=== PATIENT | female | born 1980 | race Caucasian/White ===

== ENCOUNTER 2018-02-19 07:27 | Emergency (ER) | payer OTHER ==
[2018-02-19 07:50] VITALS: BMI 25.3
--- NOTE | 2018-02-19 08:00 | PDOC ---
History of Present Illness - General Chief Complaint: Vaginal Bleeding Stated Complaint: VAGINAL BLEEDING (11 WEEKS ) Time Seen by Provider: 02/19/18 07:58 History Source: Patient Exam Limitations: No Limitations - History of Present Illness Initial Comments: 02/19/18 08:21 CHIEF COMPLAINT: Vaginal bleeding HISTORY OF PRESENT ILLNESS: This is a 37 year old a1 + ectopic s/ p laparoscopic right salpingectomy 06/26/2015, LMP 11/30/2017 who presents with severe right pelvic pain and vaginal bleeding (initially "clear fluid", followed by bleeding x 1 pad) since last night. Pain is intermittent. She states that it is worse than the pain of her ectopic . REVIEW OF SYSTEMS: GENERAL/CONSTITUTIONAL: No fever or chills. No weakness. No weight change. HEAD, EYES, EARS, NOSE AND THROAT: No change in vision. No ear pain or discharge. No sore throat. CARDIOVASCULAR: No chest pain or palpitations. RESPIRATORY: No cough, wheezing, or shortness of breath. GASTROINTESTINAL: No nausea, vomiting, diarrhea or constipation. GENITOURINARY: See HPI. MUSCULOSKELETAL: No joint or muscle swelling or pain. No neck or back pain. SKIN: No rash or easy bruising. NEUROLOGIC: No headache, vertigo, loss of consciousness, or loss of sensation. PSYCHIATRIC: No depression or anxiety. ENDOCRINE: No increased thirst. No abnormal weight change. HEMATOLOGIC/LYMPHATIC: No anemia, easy bleeding, or history of blood clots. ALLERGIC/IMMUNOLOGIC: No hives or skin allergy. No latex allergy. PHYSICAL EXAM: GENERAL: The patient is awake, alert, and fully oriented, in no acute distress. HEAD: Normal with no signs of trauma. ENT: Pupils equal, round and reactive to light, extraocular movements intact, sclera anicteric, conjunctiva clear. Neck supple. LUNGS: Clear to auscultation bilaterally. Normal excursion. No respiratory distress or use of accessory muscles. CV: RRR, S1/S2, no MRG. Cap refill < 2 sec. ABDOMEN: Soft, non-distended, non-tender. EXTREMITIES: Normal range of motion, no edema. NEUROLOGICAL: Normal speech, normal gait. CN II-XII grossly intact. PSYCH: Normal mood, normal affect. SKIN: Warm, dry, normal turgor, no rashes or lesions noted. 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 Scant blood in vaginal vault. Right adnexal tenderness. Cervix open one fingerbreadth. Past History - Past Medical History Allergies/Adverse Reactions: Allergies Allergy/AdvReac Type Severity Reaction Status Date / Time No Known Allergies Allergy Verified 02/19/18 07:40 Home Medications: Ambulatory Orders Oxycodone HCl 5 mg PO Q6H PRN #10 tablet MDD 4 tabs 02/19/18 COPD: No Other medical history: DENIES. - Reproductive History (#): 3 Para: 0 Cervical CA: No Dysfunctional Uterine Bleeding: No Ectopic : Yes (rt side 06/26/15) Endometrial CA: No Polycystic Ovaries: No Tubal Ligation: No Spontaneous : 1 - Immunization History Immunization Up to Date: Yes - Suicide/Smoking/Psychosocial Hx Smoking History: Never smoked Have you smoked in the past 12 months: No Hx Alcohol Use: No Drug/Substance Use Hx: No Substance Use Type: None *Physical Exam - Vital Signs Last Vital Signs Temp Pulse Resp BP Pulse Ox 98.9 F 93 H 19 116/55 100 02/19/18 07:40 02/19/18 07:40 02/19/18 07:40 02/19/18 07:40 02/19/18 07:40 ED Treatment Course - LABORATORY CBC & Chemistry Diagram: 02/19/18 08:15 - RADIOLOGY Radiology Studies Ordered: Category Date Time Status <14WKS US [US] Stat Ultrasound 02/19/18 07:59 Ordered Medical Decision Making - Medical Decision Making 02/19/18 08:47 A/P: 37 year old female with vaginal bleeding, history of extopic. 1. Labs including CBC, bhcg, T&S, UA/culture 2. Transvaginal u/s 3. Tylenol 975mg po for pain 02/19/18 09:42 Bhcg 1446 Blood type rh + 02/19/18 11:59 U/s reviewed: IUP 5 weeks 5 days without cardiac activity. Given LMP and open cervix, likely inevitable ab. Patient will return Friday for repeat labs and u/s. She is crying in pain, so will give Toradol as do not suspect viable . Followup instructions and return precautions reviewed. *DC/Admit/Observation/Transfer Diagnosis at time of Disposition: Inevitable - Discharge Dispostion Disposition: HOME Condition at time of disposition: Stable Admit: No - Prescriptions Prescriptions: Oxycodone HCl 5 mg PO Q6H PRN #10 tablet MDD 4 tabs PRN Reason: Pain - Referrals Referrals: Haydee Yeung MD [Certified Nurse Machine Operator Replanter] - 3 days - Patient Instructions Printed Discharge Instructions: DI for Threatened Additional Instructions: -Take Tylenol as needed for pain -Return here on Friday for repeat lab work and ultrasound -Return sooner for bleeding more than one pad per hour or any other concerning symptoms Print Language: [place] ISLANDER - Post Discharge Activity Forms/Work/School Notes: Back to Work
[2018-02-19] MEDS ORDERED: ACETAMINOPHEN 325 MG TABLET (FP) ONE (08:16)
[2018-02-19 08:27] LABS: BASO % 0.6 % (0-2.0); EOS % 5.7 % (0-4.5); HEMATOCRIT 36.2 % (32.4-45.2); HEMOGLOBIN 12.2 GM/dL (10.7-15.3); LYMPH % 19.9 % (8-40); MCH 29.9 pg (25.7-33.7); MCHC 33.6 g/dl (32.0-36.0); MEAN PLT VOLUME 7.5 fl (7.5-11.1); MONO % 6.9 % (3.8-10.2); NEUT % 66.9 % (42.8-82.8); PLATELET COUNT 345 K/MM3 (134-434); RBC 4.07 M/mm3 (3.60-5.2); RDW 13.2 % (11.6-15.6); WHITE BLOOD COUNT 11.6 K/mm3 (4.0-10.0)
[2018-02-19] MEDS ORDERED: ACETAMINOPHEN 500 MG TABLET (FP) PO ONE (08:27)
[2018-02-19 08:28] LABS: URINE APPEARANCE CLEAR; URINE BILIRUBIN NEGATIVE (NEGATIVE); URINE BLOOD 3+ (NEGATIVE); URINE COLOR STRAW; URINE GLUCOSE (UA) NEGATIVE (NEGATIVE); URINE KETONE NEGATIVE (NEGATIVE); URINE LEUK ESTERASE NEGATIVE (NEGATIVE); URINE NITRITE NEGATIVE (NEGATIVE); URINE PROTEIN NEGATIVE (NEGATIVE); URINE UROBILINOGEN NEGATIVE mg/dL (0.2-1.0)
[2018-02-19 08:35] LABS: EPI CELLS RARE /HPF (FEW); URINE BACTERIA RARE /hpf (NONE SEEN)
[2018-02-19 11:17] VITALS: TEMP 98.6
[2018-02-19] MEDS ORDERED: IBUPROFEN 600 MG TABLET (FP) PO ONE (11:58)
[2018-02-19] MEDS ORDERED: KETOROLAC TROMETHAMINE 30 MG/1 ML VIAL IM ONE (12:03)
[2018-02-19] MEDS ORDERED: KETOROLAC TROMETHAMINE 30 MG/1 ML VIAL ONE (12:13)
[2018-02-19] MEDS ORDERED: morphine CARPU-JECT 4 MG/1 ML DISP.SYRIN IVPUSH ONE (13:11)
--- NOTE | 2018-02-19 13:12 | PDOC ---
ED Treatment Course - LABORATORY CBC & Chemistry Diagram: 02/19/18 08:15 - ADDITIONAL ORDERS Additional order review: Laboratory Results 02/19/18 02/19/18 02/19/18 08:15 08:15 08:15 Beta HCG, Quant 1446.1 Urine Color Straw Urine Appearance Clear Urine pH 6.0 Ur Specific [place] 1.004 Urine Protein Negative Urine Glucose (UA) Negative Urine Ketones Negative Urine Blood 3+ H Urine Nitrite Negative Urine Bilirubin Negative Urine Urobilinogen Negative Ur Leukocyte Esterase Negative Urine WBC (Auto) 2 Urine RBC (Auto) 2 Ur Epithelial Cells Rare Urine Bacteria Rare Blood Type B POSITIVE Antibody Screen Negative 02/19/18 08:15 RBC 4.07 MCV 89.0 MCHC 33.6 RDW 13.2 MPV 7.5 Neutrophils % 66.9 Lymphocytes % 19.9 D Monocytes % 6.9 Eosinophils % 5.7 H Basophils % 0.6 - RADIOLOGY Radiology Studies Ordered: Category Date Time Status <14WKS US [US] Stat Ultrasound 02/19/18 07:59 Completed - Medications Given in the ED: ED Medications Discontinued Medications Generic Name Dose Route Start Last Admin Trade Name Nickq PRN Reason Stop Dose Admin Acetaminophen 975 mg 02/19/18 08:27 02/19/18 08:35 Tylenol - PO 02/19/18 08:28 975 mg ONCE ONE Administration Ibuprofen 600 mg 02/19/18 11:58 02/19/18 12:21 Motrin - PO 02/19/18 11:59 Not Given ONCE ONE Ketorolac Tromethamine 30 mg 02/19/18 12:03 02/19/18 12:20 Toradol Injection - IM 02/19/18 12:04 30 mg ONCE ONE Administration Medical Decision Making - Medical Decision Making 02/19/18 13:25 Patient discharged, but is writhing in pain after Toradol and Tylenol. Is requesting "something stronger"'; will give Morphine. Discussed with Dr. Kathleen, account relationship manager for OB. 02/19/18 16:21 Patient re-evaluated and is feeling better. Feels comfortable going home and returning for re-evaluation on Friday. *DC/Admit/Observation/Transfer Diagnosis at time of Disposition: Inevitable - Discharge Dispostion Disposition: HOME Condition at time of disposition: Stable - Prescriptions Prescriptions: Ibuprofen [Motrin -] 600 mg PO QID #15 tablet - Referrals Referrals: Haydee Yeung MD [Certified Nurse Test Skein Winder] - 3 days - Patient Instructions Printed Discharge Instructions: DI for Threatened Additional Instructions: -Take Tylenol as needed for pain -Return here on Friday for repeat lab work and ultrasound -Return sooner for bleeding more than one pad per hour or any other concerning symptoms Print Language: HUNGARIAN - Post Discharge Activity Forms/Work/School Notes: Back to Work
[2018-02-19] MEDS ORDERED: MORPHINE SULFATE 10 MG/1 ML *VIAL ONE (13:28)
[2018-02-19 14:54] VITALS: BP 118/72; PULSE 73
== END 2018-02-19 16:54 | disposition home or self-care (01) ==
LOC: JER 07:27
PROC: 3E0233Z Introduction of Anti-inflammatory into Muscle, Percutaneous Approach (ICD-10-PCS; principal; 2018-02-19)
PROC: 3E033NZ Introduction of Analgesics, Hypnotics, Sedatives into Peripheral Vein, Percutaneous Approach (ICD-10-PCS; 2018-02-19)
DX: O26.891 Other specified pregnancy related conditions, first trimester (principal); O20.0 Threatened abortion; Z3A.01 Less than 8 weeks gestation of pregnancy
CPT/HCPCS: 36415; 76801-TC; 81003; 81015; 84702; 85025; 86850; 86900; 86901; 87086; 99283-25

== ENCOUNTER 2018-02-21 08:21 | Emergency (ER) | payer OTHER ==
[2018-02-21 08:31] VITALS: BP 117/67; PULSE 78; TEMP 98.4; BMI 25.3
--- NOTE | 2018-02-21 09:39 | PDOC ---
History of Present Illness - General Chief Complaint: Revisit,Wound Recheck Stated Complaint: FOLLOW UP Time Seen by Provider: 02/21/18 09:27 History Source: Patient Exam Limitations: No Limitations - History of Present Illness Initial Comments: 02/21/18 09:42 Patient came to emergency department for repeat beta hCG and ultrasound. Was seen here 2 days ago and diagnosed with a probable missed AB. Beta hCG then was 1446 and patient had urge amount of bleeding with noted clots at that time. Patient states bleeding has lessened abdominal pain. However feels weak with no fevers Occurred: reports: yesterday Severity: reports: mild Pain Location: reports: abdomen Past History - Travel Traveled outside of the country in the last 30 days: No Close contact w/someone who was outside of country & ill: No - Past Medical History Allergies/Adverse Reactions: Allergies Allergy/AdvReac Type Severity Reaction Status Date / Time No Known Allergies Allergy Verified 02/21/18 08:26 Home Medications: Ambulatory Orders Oxycodone HCl 5 mg PO Q6H PRN #10 tablet MDD 4 tabs 02/19/18 COPD: No - Reproductive History (#): 3 Para: 0 Cervical CA: No Dysfunctional Uterine Bleeding: No Ectopic : Yes (rt side 06/26/15) Endometrial CA: No Polycystic Ovaries: No Tubal Ligation: No Spontaneous : 1 - Immunization History Immunization Up to Date: Yes - Suicide/Smoking/Psychosocial Hx Smoking History: Never smoked Have you smoked in the past 12 months: No Hx Alcohol Use: No Drug/Substance Use Hx: No Substance Use Type: None Review of Systems - Review of Systems Able to Perform ROS?: Yes Is the patient limited French proficient: Yes Constitutional: Yes: Symptoms Reported, See HPI, Malaise. No: Fever HEENTM: No: Symptoms Reported Respiratory: Yes: See HPI. No: Symptoms reported Integumentary: Yes: Symptoms Reported All Other Systems: Reviewed and Negative *Physical Exam - Vital Signs Last Vital Signs Temp Pulse Resp BP Pulse Ox 98.4 F 78 18 117/67 99 02/21/18 08:24 02/21/18 08:24 02/21/18 08:24 02/21/18 08:24 02/21/18 08:24 - Physical Exam General Appearance: Yes: Nourished, Appropriately Dressed, Apparent Distress, Mild Distress HEENT: positive: LALY, Normal ENT Inspection, TMs Normal, Pharynx Normal, Excessive drooling Neck: positive: Supple. negative: Tender, Lymphadenopathy (R), Lymphadenopathy (L) Respiratory/Chest: positive: Lungs Clear, Other (3 specific tender mobile nodules noted in left upper quadrant at 12:00 and 2:00. Has no skin changes, no nipple discharge, and breasts appear to be symmetrical. No axillary lymphadenopathy. 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 Patient has appointment with Dr. Yeung on Friday and given results of ultrasound and lab testing showing no intrauterine . Understands to drink lots of fluids, rehydrating, and keep appointment Friday for reevaluation. *DC/Admit/Observation/Transfer Diagnosis at time of Disposition: Miscarriage - Discharge Dispostion Disposition: HOME Condition at time of disposition: Stable Admit: No - Referrals Referrals: Haydee Yeung MD [Primary Care Provider] - Chiara Kohli MD [Staff Physician] - - Patient Instructions Printed Discharge Instructions: DI for Miscarriage Additional Instructions: Rest, drink lots of fluids: Teas, water, soups Avoid heavy , spicy or fatty foods until symptoms have resolved Continue [id number] medications for symptomatic relief Tylenol or Motrin for fever and pain Followup with private physician in one to 2 days as needed Return to emergency department for worsened symptoms, fevers, dehydration - Post Discharge Activity Forms/Work/School Notes: Back to Work
== END 2018-02-21 11:57 | disposition home or self-care (01) ==
LOC: JERFT 08:21 → JER 08:21 → JERFT 11:57
DX: O02.1 Missed abortion (principal); Z3A.00 Weeks of gestation of pregnancy not specified
CPT/HCPCS: 36415; 76817-TC; 84702; 99281-25

== ENCOUNTER 2018-12-31 22:38 | Emergency (ER) | payer OTHER ==
[2018-12-31 22:57] VITALS: BP 127/60; PULSE 78; TEMP 98.4; BMI 22.8
--- NOTE | 2018-12-31 23:28 | PDOC ---
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 Patient report doing home test which was positive today. Patient report h/o 2 miscarriages and 1 ectopic treated with right salpingectomy 2 years ago. Denies soaking any pads and only use panty liners. Denies N/V, dizziness, abdominal pains, fever. Timing/Duration: 1-3 hours Past History - Past Medical History Allergies/Adverse Reactions: Allergies Allergy/AdvReac Type Severity Reaction Status Date / Time No Known Allergies Allergy Verified 12/31/18 22:56 Home Medications: Ambulatory Orders Pnv No.95/Ferrous Fum/Folic AC [ Vitamin Tablet] 1 each PO DAILY 30 Days #30 tablet 01/01/19 COPD: No - Reproductive History (#): 3 Para: 0 Cervical CA: No Dysfunctional Uterine Bleeding: No Ectopic : Yes (rt side 06/26/15) Endometrial CA: No Polycystic Ovaries: No Tubal Ligation: No Spontaneous : 1 - Immunization History Immunization Up to Date: Yes - Suicide/Smoking/Psychosocial Hx Smoking History: Never smoked Have you smoked in the past 12 months: No Information on smoking cessation initiated: No Hx Alcohol Use: No Drug/Substance Use Hx: No Substance Use Type: None Review of Systems - Review of Systems Able to Perform ROS?: Yes Is the patient limited Nauruan proficient: No Constitutional: No: Fever, Malaise HEENTM: No: Blurred Vision, Recent change in vision Respiratory: No: Symptoms reported Cardiac (ROS): No: Symptoms Reported, See HPI, Chest Pain, Edema, Irregular Heart Rate, Lightheadedness, Palpitations, Syncope, Chest Tightness, Other ABD/GI: No: Nausea, Vomiting, Abdominal cramping : Yes: Other (vaginal spotting). No: Burning, Dysuria, Discharge, Frequency, Urgency All Other Systems: Reviewed and Negative *Physical Exam - Vital Signs Last Vital Signs Temp Pulse Resp BP Pulse Ox 98.4 F 78 16 127/60 100 12/31/18 22:54 12/31/18 22:54 12/31/18 22:54 12/31/18 22:54 12/31/18 22:54 - Physical Exam General Appearance: Yes: Nourished, Appropriately Dressed. No: Apparent Distress HEENT: positive: EOMI, LALY, Normal ENT Inspection Neck: positive: Supple Respiratory/Chest: positive: Lungs Clear. negative: Respiratory Distress, Accessory Muscle Use Cardiovascular: positive: Regular Rhythm, Regular Rate Female Pelvic Exam: positive: normal external exam, cervical os closed, normal adnexa. negative: CMT, discharge, vaginal bleeding (no blood in vaginal vault) Gastrointestinal/Abdominal: positive: Flat, Soft. negative: Tender, Organomegaly Musculoskeletal: positive: Normal Inspection Extremity: positive: Normal Capillary Refill, Normal Inspection Neurologic: positive: Fully Oriented, Alert, Normal Response Moderate Sedation - Procedure Monitoring Vital Signs: Procedure Monitoring Vital Signs Temperature 98.4 F 12/31/18 22:54 Pulse Rate 78 12/31/18 22:54 Respiratory Rate 16 12/31/18 22:54 Blood Pressure 127/60 12/31/18 22:54 O2 Sat by Pulse Oximetry (%) 100 12/31/18 22:54 ED Treatment Course - LABORATORY CBC & Chemistry Diagram: 01/01/19 00:33 01/01/19 00:33 Medical Decision Making - Medical Decision Making 12/31/18 23:56 Patient LMP 15 present with complains of vaginal spotting since today. Patient report doing home test which was positive today. Patient report h/o 2 miscarriages and 1 ectopic treated with right salpingectomy 2 years ago. Clinical exam unremarkable with no vaginal bleeding on exam. CBC,CMP beta hcg , type and screen labs ordered. transvaginal US ordered to document IUP. symptoms likely threatened AB and will be discharged home to f/u in 48hrs for beta hcg if normal labs and US. 01/01/19 00:31 official pelvic us shows GS with no yolk sac or FP. no adnexal mass on US. gestational sac diameter of 0.48cm c/w 5.0wks GA. labs pending 01/01/19 01:57 CBC and chemistry labs normal. beta hcg 6200. patient stable for d/c with f/u in 48hrs for rpt beta hcg level *DC/Admit/Observation/Transfer Diagnosis at time of Disposition: Threatened in first trimester - Discharge Dispostion Disposition: HOME Condition at time of disposition: Stable Decision to Admit order: No - Prescriptions Prescriptions: Pnv No.95/Ferrous Fum/Folic AC [ Vitamin Tablet] 1 each PO DAILY 30 Days #30 tablet - Referrals Referrals: Arnulfo Au MD [Staff Physician] - - Patient Instructions Printed Discharge Instructions: DI for Threatened Additional Instructions: Your labs and ultrasound was normal. follow-up in 2 days either with your OB or ED for repeat hcg labs to follow-up with . Come back to ER if worsening vaginal bleeding, abdominal pains Print Language: ECUADOREAN - Post Discharge Activity
[2019-01-01 01:02] LABS: BASO % 0.7 % (0-2.0); EOS % 6.1 % (0-4.5); HEMATOCRIT 34.5 % (32.4-45.2); HEMOGLOBIN 12.1 GM/dL (10.7-15.3); LYMPH % 22.5 % (8-40); MCH 31.2 pg (25.7-33.7); MEAN CELL VOLUME 89.2 fl (80-96); MEAN PLT VOLUME 8.1 fl (7.5-11.1); MONO % 7.9 % (3.8-10.2); NEUT % 62.8 % (42.8-82.8); PLATELET COUNT 300 K/MM3 (134-434); RBC 3.87 M/mm3 (3.60-5.2); RDW 13.3 % (11.6-15.6); WHITE BLOOD COUNT 8.6 K/mm3 (4.0-10.0)
[2019-01-01 01:49] LABS: ALBUMIN 3.8 g/dl (3.4-5.0); ALK PHOS 60 U/L (45-117); ANION GAP 6 MMOL/L (8-16); BILIRUBIN,TOTAL 0.3 mg/dL (0.2-1); BLOOD UREA NITROGEN 10 mg/dL (7-18); CALCIUM 8.8 mg/dL (8.5-10.1); CHLORIDE 106 mmol/L (98-107); CO2 26 mmol/L (21-32); CREATININE 0.7 mg/dL (0.55-1.3); GLUCOSE,RANDOM 92 mg/dL (74-106); POTASSIUM 4.4 mmol/L (3.5-5.1); SGOT/AST 18 U/L (15-37); SGPT/ALT 30 U/L (13-61); SODIUM 137 mmol/L (136-145); TOT PROT 7.2 g/dl (6.4-8.2)
== END 2019-01-01 02:04 | disposition home or self-care (01) ==
LOC: JER 22:38
DX: O26.891 Other specified pregnancy related conditions, first trimester (principal); Z3A.01 Less than 8 weeks gestation of pregnancy; O20.0 Threatened abortion
CPT/HCPCS: 36415; 76801-TC; 80053; 84702; 85025; 86850; 86900; 86901; 99281-25

== ENCOUNTER 2019-01-03 16:51 | Emergency (ER) | payer SELFPAY, OTHER | END 2019-01-03 20:04 | disposition home or self-care (01) | LOC: JERFT 16:51 ==

== ENCOUNTER 2019-01-19 14:57 | Emergency (ER) | payer OTHER ==
[2019-01-19 15:09] VITALS: BP 128/57; PULSE 84; TEMP 98; BMI 25.7
--- NOTE | 2019-01-19 15:09 | PDOC ---
Rapid Medical Evaluation Chief Complaint: Pain Time Seen by Provider: 01/19/19 15:03 Medical Evaluation: Allergies Allergy/AdvReac Type Severity Reaction Status Date / Time No Known Allergies Allergy Verified 01/03/19 17:00 01/19/19 15:07 I have performed a brief in person evaluation of this patient. CC: Left flank pain HPI: Pt is a 38 YO female who states she has left flank pain x 1 night. Pt is 7 weeks . Denies urinary symptoms. PE: Skin: Clear Lungs: Clear Heart:RRR Abd: soft, nontender MS: Moves all extremities without difficulty Neuro: Alert and oriented Psych: Appropriate affect I have ordered the following: UA/UC Pt will proceed to the main ED for further evaluation. Discharge Disposition - Diagnosis Flank pain - Referrals - Patient Instructions - Post Discharge Activity
[2019-01-19] MEDS ORDERED: ACETAMINOPHEN 325 MG TABLET (FP) PO ONE (16:01)
--- NOTE | 2019-01-19 16:01 | PDOC ---
History of Present Illness - General Chief Complaint: Pain Stated Complaint: LOWER BACK PAIN Time Seen by Provider: 01/19/19 15:03 History Source: Patient - History of Present Illness Timing/Duration: reports: intermittent Past History - Past Medical History Allergies/Adverse Reactions: Allergies Allergy/AdvReac Type Severity Reaction Status Date / Time No Known Allergies Allergy Verified 01/19/19 15:04 Home Medications: Ambulatory Orders Pnv No.95/Ferrous Fum/Folic AC [ Vitamin Tablet] 1 each PO DAILY 30 Days #30 tablet 01/01/19 COPD: No Other medical history: LMP - Reproductive History (#): 3 Para: 0 Cervical CA: No Dysfunctional Uterine Bleeding: No Ectopic : Yes (rt side 06/26/15) Endometrial CA: No Polycystic Ovaries: No Tubal Ligation: No Spontaneous : 1 - Immunization History Immunization Up to Date: Yes - Suicide/Smoking/Psychosocial Hx Smoking History: Never smoked Have you smoked in the past 12 months: No Hx Alcohol Use: No Drug/Substance Use Hx: No Substance Use Type: None Review of Systems - Review of Systems Constitutional: No: Chills, Fever ABD/GI: No: Diarrhea, Nausea, Vomiting, Abdominal cramping : No: Dysuria, Flank Pain, Hematuria *Physical Exam - Vital Signs Last Vital Signs Temp Pulse Resp BP Pulse Ox 98 F 84 16 128/57 L 99 01/19/19 15:05 01/19/19 15:05 01/19/19 15:05 01/19/19 15:05 01/19/19 15:05 - Physical Exam General Appearance: Yes: Appropriately Dressed. No: Apparent Distress HEENT: positive: Normal Voice Neck: positive: Supple Respiratory/Chest: negative: Respiratory Distress Gastrointestinal/Abdominal: negative: Tender Musculoskeletal: negative: CVA Tenderness, Vertebral Tenderness Extremity: positive: Normal Inspection Integumentary: positive: Dry, Warm Neurologic: positive: Fully Oriented, Alert, Normal Mood/Affect Moderate Sedation - Procedure Monitoring Vital Signs: Procedure Monitoring Vital Signs Temperature 98 F 01/19/19 15:05 Pulse Rate 84 01/19/19 15:05 Respiratory Rate 16 01/19/19 15:05 Blood Pressure 128/57 L 01/19/19 15:05 O2 Sat by Pulse Oximetry (%) 99 01/19/19 15:05 Medical Decision Making - Medical Decision Making 01/19/19 15:59 38 yo F, (s/p 2 elec ABs, 1 ectopic w/ R salpingectomy), ~7 weeks by dates w/ confirmed IUP w/ cardiac activity on US 5 days ago per pt, here w/ lower back pain that has been present throughout but worsened yesterday. Pt states she works in the [employer] and stands for long hrs and suspects this to be the cause of her pain. Has not taken anything for pain. No fall. Denies dysuria, n/v/f/c, abd pain or vag bleed. See exam Intermittent lower back pain in Confirmed IUP last week per pt No abd pain/vag bleed No dysuria Exam unremarkable -ua -tylenol -anticipate dc w/ OB f/u 01/19/19 16:44 UA neg for infection. Reports improvement w/ meds. Dc w/ CONSTRUCTION ENGINEER f/u *DC/Admit/Observation/Transfer Diagnosis at time of Disposition: Low back pain Qualifiers: Chronicity: unspecified Back pain laterality: bilateral Sciatica presence: without sciatica Qualified Code(s): M54.5 - Low back pain - Discharge Dispostion Disposition: HOME Condition at time of disposition: Good - Referrals Referrals: Scot Resendiz [Primary Care Provider] - - Patient Instructions Printed Discharge Instructions: Managing Symptoms of Additional Instructions: Benítez orina no mostr signos de infeccin. Es muy comn que las mujeres embarazadas experimenten dolor de espalda. [place] Tylenol segn sea necesario. Continuar con benítez gineclogo Print Language: INDONESIAN - Post Discharge Activity Forms/Work/School Notes: Back to Work
[2019-01-19 16:06] LABS: URINE APPEARANCE CLEAR; URINE BILIRUBIN NEGATIVE (<2.0 mg/dL); URINE COLOR LTYELLOW; URINE GLUCOSE (UA) NEGATIVE (NEGATIVE); URINE KETONE NEGATIVE (NEGATIVE); URINE LEUK ESTERASE NEGATIVE (NEGATIVE); URINE NITRITE NEGATIVE (NEGATIVE); URINE PROTEIN NEGATIVE (NEGATIVE); URINE UROBILINOGEN NEGATIVE mg/dL (0.2-1.0)
== END 2019-01-19 17:00 | disposition home or self-care (01) ==
LOC: JER 14:57
DX: O26.891 Other specified pregnancy related conditions, first trimester (principal); M54.5 Low back pain; Z3A.01 Less than 8 weeks gestation of pregnancy
CPT/HCPCS: 81003; 87086; 99281-25

== ENCOUNTER 2019-03-17 17:27 | Emergency (ER) | payer OTHER ==
--- NOTE | 2019-03-17 17:33 | PDOC ---
Rapid Medical Evaluation Chief Complaint: Pain Time Seen by Provider: 03/17/19 17:30 Medical Evaluation: Allergies Allergy/AdvReac Type Severity Reaction Status Date / Time No Known Allergies Allergy Verified 01/19/19 15:04 03/17/19 17:31 I have performed a brief in person evaluation of the patient. The patient presents with CC: neck pain HPI: Pt is 16 weeks and states she has upper back pain after doing laundry and chores. Pt states her pain is a 8/10. 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 PE: Skin: Clear, no rash HEENT: Oropharynx clear Lungs: Mild expiratory wheezing Heart: RRR MS: Moves all extremities. Pt has pain to the right trapezius muscle. Neuro: Alert Psych: Appropriate affect The patient will proceed to [facility] for further evaluation. Discharge Disposition - Diagnosis Musculoskeletal pain - Referrals - Patient Instructions - Post Discharge Activity
[2019-03-17 17:38] VITALS: BP 113/72; PULSE 81; TEMP 98.2; BMI 27.4
[2019-03-17] MEDS ORDERED: ACETAMINOPHEN 325 MG TABLET (FP) PO ONE (18:21)
--- NOTE | 2019-03-17 18:23 | PDOC ---
History of Present Illness - General Chief Complaint: Pain Stated Complaint: INJURY TO THE BACK Time Seen by Provider: 03/17/19 17:30 History Source: Patient Exam Limitations: No Limitations Past History - Travel Traveled outside of the country in the last 30 days: No Close contact w/someone who was outside of country & ill: No - Past Medical History Allergies/Adverse Reactions: Allergies Allergy/AdvReac Type Severity Reaction Status Date / Time No Known Allergies Allergy Verified 03/17/19 17:57 Home Medications: Ambulatory Orders Pnv No.95/Ferrous Fum/Folic AC [ Vitamin Tablet] 1 each PO DAILY 30 Days #30 tablet 01/01/19 COPD: No - Reproductive History (#): 3 Para: 0 Cervical CA: No Dysfunctional Uterine Bleeding: No Ectopic : Yes (rt side 06/26/15) Endometrial CA: No Polycystic Ovaries: No Tubal Ligation: No Spontaneous : 1 - Immunization History Immunization Up to Date: Yes - Suicide/Smoking/Psychosocial Hx Smoking History: Never smoked Have you smoked in the past 12 months: No Information on smoking cessation initiated: No Hx Alcohol Use: No Drug/Substance Use Hx: No Substance Use Type: None Review of Systems - Review of Systems Able to Perform ROS?: Yes Comments:: 03/17/19 18:19 CONSTITUTIONAL: Absent: fever, chills, diaphoresis, generalized weakness, malaise, loss of appetite GASTROINTESTINAL: Absent: abdominal pain, abdominal distension, nausea, vomiting, diarrhea, constipation, melena, hematochezia GENITOURINARY: Absent: dysuria, frequency, urgency, hesitancy, hematuria, flank pain, genital pain MUSCULOSKELETAL: Present: L shoulder pain Absent: myalgia joint swelling SKIN: Absent: rash, itching, pallor NEUROLOGIC: Absent: headache, focal weakness or paresthesias, dizziness, unsteady gait, seizure, mental status changes, bladder or bowel incontinence PSYCHIATRIC: Absent: anxiety, depression, suicidal or homicidal ideation, hallucinations. Is the patient limited Portuguese proficient: No *Physical Exam - Vital Signs Last Vital Signs Temp Pulse Resp BP Pulse Ox 98.2 F 81 18 113/72 99 03/17/19 17:31 03/17/19 17:31 03/17/19 17:31 03/17/19 17:31 03/17/19 17:31 - Physical Exam Comments: 03/17/19 18:21 GENERAL: Well developed, well nourished. Awake and alert. No acute distress. NECK: Supple. Full ROM. No JVD. Carotid pulses 2+ and symmetric, without bruits. No thyromegaly. No lymphadenopathy. ABDOMINAL: Soft. Non-tender. Non-distended. No rebound or guarding. No organomegaly. Normoactive bowel sounds. MUSCULOSKELETAL Normal range of motion at all joints. No bony deformities or tenderness. No CVA tenderness. EXTREMITIES: No cyanosis. No clubbing. No edema. No calf tenderness. SKIN: Warm and dry. Normal capillary refill. No rashes. No jaundice. NEUROLOGICAL: Alert, awake, appropriate. Cranial nerves 2-12 intact. No deficits to light touch and temperature in face, upper extremities and lower extremities. No motor deficits in the in face, upper extremities and lower extremities. Normoreflexic in the upper and lower extremities. Normal speech. Toes are down- going bilaterally. Gait is normal without ataxia. PSYCHIATRIC: Cooperative. Good eye contact. Appropriate mood and affect. *DC/Admit/Observation/Transfer Diagnosis at time of Disposition: Left shoulder pain Qualifiers: Chronicity: acute Qualified Code(s): M25.512 - Pain in left shoulder - Discharge Dispostion Disposition: HOME Condition at time of disposition: Stable Decision to Admit order: No - Referrals Referrals: Jaya Ye MD [Primary Care Provider] - - Patient Instructions Printed Discharge Instructions: DI for Shoulder Pain Additional Instructions: You were evaluated for your shoulder pain today. You had a bedside ultrasound performed of your baby. The heart rate today was 148 and the baby was moving. Please continue your vitamins as previously prescribed. He may take Motrin 650 mg every 6 hours as needed for pain. Please keep your follow-up with her [employer] as scheduled for 03/26/19. Return to the ER for abdominal pain, vaginal bleeding, vomiting or if you have any changes in your symptoms. Te evaluaron por el dolor en bro hoy. Se le realiz un ultrasonido de cabecera a benítez beb. La frecuencia cardaca de hoy era de 148 y el beb se mova. Por favor contine con mario vitaminas prenatales alex se prescribi anteriormente. l puede neelam Motrin 650 mg cada 6 horas segn sea necesario para el dolor. Mantenga benítez seguimiento con benítez obstetra / gineclogo segn lo programado para . Regrese a la abdi de emergencias para el dolor abdominal, sangrado vaginal, vmitos o si tiene algn cambio en mario sntomas. Print Language: COMORAN - Post Discharge Activity
[2019-03-17] MEDS ORDERED: ACETAMINOPHEN 325 MG TABLET (FP) ONE (18:36)
== END 2019-03-17 19:23 | disposition home or self-care (01) ==
LOC: JERFT 17:27
DX: M25.512 Pain in left shoulder (principal)
CPT/HCPCS: 99281-25

== ENCOUNTER 2019-04-30 23:00 | Emergency (ER) | payer OTHER | END 2019-05-01 02:46 | disposition home or self-care (01) | LOC: JER 05-01 02:46 ==

== ENCOUNTER 2019-08-31 19:00 | Inpatient (IN) | payer OTHER ==
[2019-08-31] MEDS ORDERED: DINOPROSTONE 10 MG VAGINAL SUPPOSITORY VG ONE (20:33)
--- NOTE | 2019-08-31 20:41 | HP ---
Past Medical History - Primary Care Physician PCP:: Jose G Funes - Admission Chief Complaint: 39yo P0030 with post-term at EGA 40w2d admitted for labor indx. History of Present Illness: complicated by: AMA Prior h/o early SAB x 2 Prior Hx of ectopic Sickle cell carrier-- FOB had normal Hg electrophoresis History Source: Patient, Medical Record Limitations to Obtaining History: No Limitations, Language Barrier (Renate translated) - Past Medical History RENTAL CLERK: No: Alzheimer's, CVA, Dementia, Migraine, Multiple Sclerosis, Peripheral Neuropathy, Parkinson's, Seizure, Syncope, TIA, Vertigo, Other Cardiovascular: No: AFIB, Aneurysm, Aortic Insufficiency, Aortic Stenosis, CAD, CHF, Deep Vein Thrombosis, HTN, Hyperlipdemia, NH, Mitral Insufficiency, Mitral Stenosis, Murmur, Pulmonary Hypertension, Other Pulmonary: No: Asthma, Bronchitis, Cancer, COPD, O2 Dependent, Pneumonia, Previously Intubated, Pulmonary Embolus, Pulmonary Fibrosis, Sleep Apnea, Other Gastrointestinal: No: Ascites, Cancer, Constipation, Crohn's Disease, Diverticulitis, Diverticulosis, Esophageal Varices, Gastritis, GERD, GI Bleed, Hemorrhoids, Hiatal Hernia, Inflamatory Bowel Disease, Irritable Bowel Disease, Pancreatitis, Peptic Ulcer Disease, Ulcerative Colitis, Other Hepatobiliary: No: Cirrhosis, Cholelithiasis, Cholecystitis, Choledocholithiasis , Hepatitis A, Hepatitis B, Hepatitis C, Other Renal/: No: Renal Failure, Renal Inusuff, BPH, Cancer, Hematuria, Hemodialysis , Neurogenic Bladder, Renal Calculi, UTI, Other Reproductive: No: Ectopic , Endometriosis, Fibroids, PID, Polycystic Ovary Syndrome, Postmenopausal, Other ...: 4 ...Para: 0 ...Spon : 2 ... Weeks Gestation by Dates: 40.2 Heme/Onc: No: Anemia, B12 Deficiency, Bleeding Disorder, Cancer, Current Chemotherapy, Current Radiation Therapy, Hemochromatosis, Hypercoaguable State, Myeloproliferative Synd, Sickle Cell Disease, Sickle Cell Trait, Thrombocytopenia, Other Infectious Disease: No: AIDS, C-Diff, Herpes Zoster, HIV, MRSA, STD's, Tuberculosis, VREF, Other Psych: No: Addictions, Anxiety, Bipolar, Depression, Panic, Psychosis, Schizophrenia, Other Musculoskeletal: No: Bursitis, Chronic low back pain, Hemiparesis, Hemiplegia, Osteoarthritis, Paraplegia, Other Rheumatology: No: Fibromyalgia, Gout, Lupus, Rheumatoid Arthritis, Sarcoidosis, Vasculitis, Other ENT: No: Allergic Rhinitis, Sinusitis, Other Endocrine: No: Luce's Disease, Plover's Disease, Diabetes Insipidus, Diabetes Mellitus, Hyperparathyroidism, Hyperthyroidism, Hypothyroidism, Osteopenia, SIADH, Other Dermatology: No: Basal Cell, Cellulitis, Eczema, Melanoma, Psoriasis, Squamous Cell, Other Additional Medical History: Left shoulder surgery - Past Surgical History Hx Myomectomy: No Hx Transabdominal Cerclage: No - Smoking History Smoking history: Never smoked Have you smoked in the past 12 months: No - Alcohol/Substance Use Hx Alcohol Use: No History of Substance Use: reports: None - Social History Usual Living Arrangement: Yes: With Spouse Do you think of yourself as: Straight/Heterosexual ADL: Independent History of Recent Travel: No Home Medications - Allergies Allergies/Adverse Reactions: Allergies Allergy/AdvReac Type Severity Reaction Status Date / Time No Known Allergies Allergy Verified 08/29/19 20:08 - Home Medications Home Medications: Ambulatory Orders RX: Pnv No.95/Ferrous Fum/Folic AC [ Vitamin Tablet] 1 each PO DAILY 30 Days #30 tablet 01/01/19 Family Medical History Family History: Unremarkable Review of Systems - Review of Systems Constitutional: reports: No Symptoms Eyes: reports: No Symptoms HENT: reports: No Symptoms Neck: reports: No Symptoms Cardiovascular: reports: No Symptoms Respiratory: reports: No Symptoms Gastrointestinal: reports: No Symptoms Genitourinary: reports: No Symptoms Breasts: reports: No Symptoms Reported Musculoskeletal: reports: No Symptoms Integumentary: reports: No Symptoms Physical Exam - Maternity Constitutional: Yes: Well Nourished, No Distress, Calm Eyes: Yes: WNL, Conjunctiva Clear HENT: Yes: WNL, Atraumatic, Normocephalic Neck: Yes: WNL, Supple, Trachea Midline Cardiovascular: Yes: WNL, Regular Rate and Rhythm Lungs: Clear to auscultation, Normal air movement - Abdominal Exam/OB Fundal Height: 40 Number of Fetuses: Single Presentation: Vertex Contractions: No Heart Rate (range): 130 Heart Rate Location: Midline Category: I Accelerations: Non-Uniform Decelerations: None - Vaginal Exam/OB Vaginal Bleediing: No Speculum Exam: No Dilatation (cm): 1 Effacement (%): 50 Amniotic Membrane Status: Intact Presentation: Vertex/Position Station: -4 (Adequate gynecoid pelvimetry, EFW ~3700 gram by Porfirio maneuvers.) - Physical Exam Musculoskeletal: Yes: WNL Extremities: Yes: WNL Edema: Yes Edema: LLE: Trace, RLE: Trace Integumentary: Yes: WNL Deep Tendon Reflex Grade: Normal +2 ...Motor Strength: WNL Psychiatric: Yes: WNL, Alert, Oriented Hemorrhage Risk Assessment - Risk Factors Medium Risk Factors: Yes: None High Risk Factors: Yes: None Risk Score: 1 Risk Level: Medium Risk Imaging - Results Ultrasound: Report Reviewed Assessment/Plan 39yo P0030 with post-term at EGA 40w2d admitted for labor indx. Pt is not in labor. Fetus with Category I tracing. Adequate gynecoid pelvimetry on exam. We had long discussion re: risks, benefits, and alternatives of labor induction. I explained the options of expectant management awaiting spontaneous labor, induction of labor, and elective section. The risks of uterine tachysystole, distress, uterine rupture, need for emergency C/S, hemorrhage, infection, scarring, etc. were discussed. We also discussed the risks of meconium aspiration, shoulder dystocia, and anesthesia options. The pt requested to proceed with induction. We discussed the alternative methods of induction with Cervidil, Cytotec, Folley ballon, and pitocin. The pt prefers Cervidil followed by pitocin, if needed.
[2019-08-31] MEDS ORDERED: DEXTROSE 5%-LACTATED RINGERS 1,000 ML IV SCH (20:45)
[2019-08-31 21:58] LABS: MEAN PLT VOLUME 8.1 fl (7.5-11.1)
[2019-08-31 22:04] LABS: BASO % 0.6 % (0-2.0); EOS % 5.3 % (0-4.5); HEMATOCRIT 36.1 % (32.4-45.2); HEMOGLOBIN 11.7 GM/dL (10.7-15.3); LYMPH % 17.6 % (8-40); MCH 27.2 pg (25.7-33.7); MCHC 32.3 g/dl (32.0-36.0); MEAN CELL VOLUME 84.3 fl (80-96); MONO % 8.6 % (3.8-10.2); NEUT % 67.9 % (42.8-82.8); PLATELET COUNT 316 K/MM3 (134-434); RBC 4.29 M/mm3 (3.60-5.2); RDW 17.6 % (11.6-15.6); WHITE BLOOD COUNT 9.1 K/mm3 (4.0-10.0)
[2019-08-31 22:11] LABS: INR 0.87 (0.83-1.09); PROTHROMBIN TIME (PATIENT) 10.3 SEC (9.7-13.0)
[2019-08-31 22:14] LABS: ACTIVATED PTT 27.7 SECONDS (25.2-36.5)
[2019-08-31 22:24] LABS: BLOOD UREA NITROGEN 11.5 mg/dL (7-18); CREATININE 0.7 mg/dL (0.55-1.3); POTASSIUM 4.3 mmol/L (3.5-5.1)
[2019-09-01 02:04] VITALS: BMI 31.5
[2019-09-01] MEDS ORDERED: BUTORPHANOL TARTRATE 1 MG/ML VIAL IVPB ONE ×2 (04:50)
[2019-09-01] MEDS ORDERED: PROMETHAZINE HCL 25 MG/1 ML VIAL IVPB ONE (04:50)
[2019-09-01] MEDS ORDERED: PROMETHAZINE HCL 25 MG/1 ML VIAL ONE (04:53)
[2019-09-01] MEDS ORDERED: BUTORPHANOL TARTRATE 1 MG/ML VIAL ONE (04:53)
[2019-09-01] MEDS ORDERED: FENTANYL/BUPIVACAINE/NS/PF - PCEA - 50 ML DISP.SYRIN EP ONE ×3 (10:06→19:05)
[2019-09-01] MEDS ORDERED: NALOXONE HCL 0.4 MG/ML VIAL IVPUSH PRN (10:22)
--- NOTE | 2019-09-01 10:25 | PN ---
Ante-Partal Exam - Subjective Subjective: Pain with contractions Vital Signs: Vital Signs Temperature 98.1 F 09/01/19 09:41 Pulse Rate 72 09/01/19 09:41 Respiratory Rate 20 09/01/19 09:41 Blood Pressure 144/92 09/01/19 09:41 O2 Sat by Pulse Oximetry (%) Bleeding: No Headache: No Visual changes: No Right upper quadrant pain: No - Contractions Contractions: Yes Regularity: Irregular Intensity: Mod/Strong Monitor Mode: External - Exam during Labor Heart Rate: 140 Variability: Moderate Category: I Monitor Accelerations: Present Monitor Decelerations: None Exam: Vaginal Dilatation (cm): 3 Effacement (%): 90 Amniotic Membrane Status: Intact Station: -2 - Intrapartum Hemorrhage Risk Medium Risk Factors: None High Risk Factors: None Risk Score: 0 Risk Level: Low Risk - Assessment/Plan Assessment/Plan: 39 yo induction of labor 1. s/p cervidil Good cervical change 3 cm, currently agnes spontaneously will monitor, start pitocin if needed 2. Desires epidural for pain control 3. Category I FHT 4. Will proceed with expectant management
[2019-09-01] MEDS ORDERED: ELECTROLYTE-148 SOLN 500 ML IV ONE (10:30)
[2019-09-01] MEDS: FENTANYL/BUPIVACAINE/NS/PF - PCEA - 50 ML DISP.SYRIN EP SCH ×2 (10:45→14:51)
[2019-09-01] MEDS: ELECTROLYTE-148 SOLN 1,000 ML IV SCH ×2 (11:30→15:23)
--- NOTE | 2019-09-01 12:29 | PN ---
Ante-Partal Exam - Subjective Subjective: Patient comfortable s/p epidural Vital Signs: Vital Signs Temperature 98.1 F 09/01/19 09:41 Pulse Rate 101 H 09/01/19 12:00 Respiratory Rate 20 09/01/19 12:00 Blood Pressure 131/72 09/01/19 12:00 O2 Sat by Pulse Oximetry (%) 98 09/01/19 12:00 Bleeding: No Headache: No Visual changes: No Right upper quadrant pain: No - Contractions Contractions: Yes Regularity: Regular Intensity: Unaware Monitor Mode: External - Exam during Labor Heart Rate: 150 Variability: Moderate Category: I Monitor Accelerations: Present Monitor Decelerations: None Exam: Vaginal Dilatation (cm): 4 Effacement (%): 90 Amniotic Membrane Status: Ruptured (clear) Station: -2 - Intrapartum Hemorrhage Risk Medium Risk Factors: None High Risk Factors: None Risk Score: 0 Risk Level: Low Risk - Assessment/Plan Assessment/Plan: 39 yo induction of labor 1. AROM performed, clear fluid Anupam without pitocin Will continue to monitor 2. GBS negative 3. Category I FHT 4. Pain well controlled with epidural 5. Will proceed with expectant management
[2019-09-01] MEDS ORDERED: LIDO 2%/EPI 1:200000 PRESRVFRE (20 ML SDVIAL) ONE (14:27)
[2019-09-01] MEDS ORDERED: OXYTOCIN 30 UNITS in 0.9% NS 30 UNIT/500 ML INFUS.BAG IVPB ONE (16:22)
--- NOTE | 2019-09-01 16:25 | PN ---
Ante-Partal Exam - Subjective Subjective: No complaints Vital Signs: Vital Signs Temperature 98.9 F 09/01/19 16:03 Pulse Rate 111 H 09/01/19 15:45 Respiratory Rate 20 09/01/19 15:45 Blood Pressure 133/71 09/01/19 15:45 O2 Sat by Pulse Oximetry (%) 99 09/01/19 15:45 Bleeding: No Headache: No Visual changes: No Right upper quadrant pain: No Pain (scale 1-10): 0 - Contractions Contractions: Yes Regularity: Irregular (q2-4min) Intensity: Mild/Mod Monitor Mode: External - Exam during Labor Heart Rate: 150 Variability: Moderate Heart Rate Location: Midline Category: I Monitor Accelerations: Present Monitor Decelerations: None Exam: Vaginal Dilatation (cm): 4 Effacement (%): 70 Amniotic Membrane Status: Leaking Amniotic Fluid: Clear Presentation: Vertex Station: -3 - Intrapartum Hemorrhage Risk Medium Risk Factors: None High Risk Factors: None Risk Score: 0 Risk Level: Low Risk - Assessment/Plan Assessment/Plan: 39yo undergoing labor induction. Fetus with Category I tracing. Labor arrested at 4cm. Contractions are irregular and inadequate. Gynecoid pelvimetry noted on exam. EFW ~3700gm. Plan to augment contractions with pitocin. Care plan d/w pt and risks, benefits, alternatives were discussed with pt and family. Pashto translation was done by family member. Pt agreed with plan.
[2019-09-01] MEDS ORDERED: OXYTOCIN 30 UNITS in 0.9% NS 30 UNIT/500 ML INFUS.BAG IVPB SCH (16:30)
--- NOTE | 2019-09-01 20:16 | PN ---
Progress Note (short form) - Note Progress Note: Patient examined found to be 3-4 cm, swollen appearing Discussed given unchanged exam over > 8 hours with adequate contractions she is likely failure to progress / failed induction and would need to deliver via delivery. Discussed risks including but not limited to infection, bleeding requiring transfusion and damage to surrounding organs such as the bowel or bladder. Discussed risk of injury to . Discussed risk of wound infection and separation. Discussed need for planning of future children and possibility of abnormal placentation. All questions answered. Patient expressed understanding. Nursing and OR staff notified. Will proceed to OR
[2019-09-01] MEDS ORDERED: ELECTROLYTE-148 SOLN 1,000 ML IV SCH ×2 (20:30→21:00)
[2019-09-01] MEDS ORDERED: CITRIC ACID/SODIUM CITRATE 30 ML UNIT-DOSE CUP PO ONE (20:30)
[2019-09-01] MEDS ORDERED: PHENYLEPHRINE HCL 10 MG/1 ML SINGLE DOSE VIAL ONE (20:47)
[2019-09-01] MEDS ORDERED: PROPOFOL 20 ML ONE (20:49)
[2019-09-01] MEDS ORDERED: OXYTOCIN 20 UNITS in 0.9% NS 20 UNIT/1,000 ML INFUS.BAG IV ONE ×2 (20:51→22:25)
[2019-09-01] MEDS ORDERED: morphine SULFATE/PF 0.5 MG/ML (2cc Syringe - QUVA) ONE (20:59)
[2019-09-01] MEDS ORDERED: OXYTOCIN 10 UNITS/ML VIAL ONE (21:45)
[2019-09-01] MEDS ORDERED: KETOROLAC TROMETHAMINE 30 MG/1 ML VIAL ONE ×2 (21:45→21:54)
--- NOTE | 2019-09-01 22:26 | PN ---
"Delivery - Delivery Section: Primary Type of Anesthesia: Spinal EBL (cc): 500 Delivery, Single - Stages of Labor Placenta: Yes: Manual Removal - Condition of Infant Gender: Male Weight: 8 lb 1 oz Position: OP - 1 Minute Total Score: 9 5 Minutes Total Score: 9 - Feeding Plan Initial Plan: Elected not to breastfeed exclusively throughout hospitalization Remarks - Remarks Remarks: Surgeon: MD Marc | Assist: BUDDY Mccauley | Anesthesia: MD Candice EBL: 500 | UOP: 1200 | IVF: 1600 Findings: Male infant, direct OP position; 9,9; wt: 8 lb 1 oz; 21 inches; normal appearing ovaries, normal left fallopian tube, absent right fallopian tube Dictation: [id number]"
[2019-09-01] MEDS ORDERED: METHYLERGONOVINE MALEATE 0.2 MG/1 ML AMP IM PRN (22:27)
[2019-09-01] MEDS ORDERED: WITCH HAZEL 50% (TUCKS) 40 PAD/JAR PAD TP PRN (22:27)
[2019-09-01] MEDS ORDERED: IBUPROFEN 800 MG/8 ML IJ IVPB PRN (22:27)
[2019-09-01] MEDS ORDERED: BENZOCAINE 28 GM HEMORRHOIDAL OINTMENT TP PRN (22:27)
[2019-09-01] MEDS ORDERED: oxyCODONE HCL 5 MG TABLET PO PRN (22:27)
[2019-09-01] MEDS ORDERED: BENZOCAINE 20% 57 GM BOTTLE TP PRN (22:27)
[2019-09-01] MEDS ORDERED: SENNOSIDES/DOCUSATE COMBO (SENNA PLUS) TABLET (UD) PO PRN (22:27)
[2019-09-01] MEDS ORDERED: OXYTOCIN 20 UNITS in 0.9% NS 20 UNIT/1,000 ML INFUS.BAG IV SCH (22:30)
[2019-09-01] MEDS ORDERED: ONDANSETRON 4 MG/2 ML VIAL IVPUSH PRN (22:38)
--- NOTE | 2019-09-02 00:01 | OP ---
DATE OF OPERATION: 09/01/2019 PREOPERATIVE DIAGNOSIS: Failed induction of labor at 40+ weeks, failure to progress. SURGEON: Lolis Tidwell MD TONGUE CARRIER: BUDDY Mccauley ANESTHIOLOGIST: Yessica Harvey MD ESTIMATED BLOOD LOSS: 500. URINE OUTPUT: 1200. INTRAVENOUS FLUIDS: 1600. FINDINGS: Male , direct OP position, Apgars 9 and 9, weight 8 pounds 1 ounce, 21 inches. Normal appearing ovaries and left fallopian tube normal. Absent right fallopian tube. INDICATIONS: Patient is a 39-year-old, 3, para 0 with a history of prior induction of labor at 41 weeks for postdates. She progressed to 4 cm and stalled for approximately 8 hours. She was counseled regarding risks, benefits, alternatives and complications of the procedure including infection, bleeding, damage to surrounding organs such as bowel, bladder, risk of abnormal placenta effecting future . She expressed understanding and was brought to the operating room. DESCRIPTION OF PROCEDURE: When anesthesia was found to be adequate, the patient was prepped and draped in the normal sterile fashion and placed in the dorsal supine position with leftward tilt. An approximately 11-cm skin incision was made with a knife and carried down to the underlying rectus muscles using Bovie electrocautery. The fascia was nicked in the midline and extended laterally using Hunt scissors. The inferior portion of the fascial incision as tented up using Jimmy clamps and dissected off of the underlying rectus muscles using Hunt scissors. Extension of the superior portion was made in a similar fashion. It was tented up using Jimmy clamps and dissected off of the underlying rectus muscles using Hunt scissors. The rectus muscles were bluntly. The peritoneum was entered sharply. The peritoneal incision was extended superiorly and inferiorly using Metzenbaum scissors. The vesicouterine peritoneum was then identified and entered sharply. The bladder flap was created digitally. Hysterotomy was performed, extended laterally using bandage scissors. The infant's head was found to be in the OP position and its head was brought through the hysterotomy site and was delivered, followed by the shoulders and body without difficulty. Cord was clamped and cut. Cord blood and cord gasses were collected and sent. The placenta was manually extracted. Uterus was cleared of all clot and debris. The uterus was closed using 0 Biosyn in a running layer. A second layer was an imbricated layer. The vesicouterine peritoneum was reapproximated using 0 Biosyn in a running fashion. The adnexa were identified, examined, and were as described above. Gutters were cleared of all clots and debris. Copious irrigation was performed. The peritoneum was then reapproximated using 2-0 Biosyn in a running fashion. Rectus muscles were reapproximated using 0 Biosyn in an interrupted fashion. The fascia was closed using 0 Vicryl in a running fashion. Subcutaneous fat was closed using 0 Vicryl in a running fashion. The skin was reapproximated using 3-0 Vicryl. The patient tolerated the procedure well. Estimated blood loss was 500 mL. Patient was brought to the recovery room in stable condition. Joanne [id number] MTDD
[2019-09-02 07:51] LABS: BASO % 0.2 % (0-2.0); EOS % 0.5 % (0-4.5); HEMATOCRIT 32.9 % (32.4-45.2); HEMOGLOBIN 10.7 GM/dL (10.7-15.3); LYMPH % 9.9 % (8-40); MCH 27.6 pg (25.7-33.7); MCHC 32.6 g/dl (32.0-36.0); MEAN CELL VOLUME 84.6 fl (80-96); MEAN PLT VOLUME 7.7 fl (7.5-11.1); MONO % 5.8 % (3.8-10.2); NEUT % 83.6 % (42.8-82.8); PLATELET COUNT 294 K/MM3 (134-434); RBC 3.89 M/mm3 (3.60-5.2); RDW 17.8 % (11.6-15.6); WHITE BLOOD COUNT 13.9 K/mm3 (4.0-10.0)
--- NOTE | 2019-09-02 09:40 | PN ---
Post Progress Note - Subjective Subjective: Patient without acute complaints. Tolerating clears, without nausea or vomiting No voiding, rossi in place draining clear fluid No ambulation or flatus yet. Denies fevers or chills. Pain well controlled. Post Day: 1 Type of Delivery: Primary C/S Vital Signs: Vital Signs Temperature 97.6 F 09/02/19 06:00 Pulse Rate 95 H 09/02/19 09:00 Respiratory Rate 18 09/02/19 09:00 Blood Pressure 120/61 09/02/19 09:00 O2 Sat by Pulse Oximetry (%) 96 09/01/19 23:30 Breast Exam: Yes: Soft Uterus: Yes: Fundus Firm, Fundus below umbilicus Incision: Yes: Dressing dry and intact Abdomen/GI: Yes: Abdomen soft, Abdominal Distention, Passing flatus, Tolerating PO. No: Tender Lochia: Yes: Rubra Lochia, amount: Moderate Extremities: Yes: Calves non-tender, Edema (+1) Activity: Ambulating - Labs Labs: CBC WBC 13.9 K/mm3 (4.0-10.0) H 09/02/19 07:05 RBC 3.89 M/mm3 (3.60-5.2) 09/02/19 07:05 Hgb 10.7 GM/dL (10.7-15.3) 09/02/19 07:05 Hct 32.9 % (32.4-45.2) 09/02/19 07:05 MCV 84.6 fl (80-96) 09/02/19 07:05 MCH 27.6 pg (25.7-33.7) 09/02/19 07:05 MCHC 32.6 g/dl (32.0-36.0) 09/02/19 07:05 RDW 17.8 % (11.6-15.6) H 09/02/19 07:05 Plt Count 294 K/MM3 (134-434) 09/02/19 07:05 MPV 7.7 fl (7.5-11.1) 09/02/19 07:05 Absolute Neuts (auto) 11.6 K/mm3 (1.5-8.0) H 09/02/19 07:05 Neutrophils % 83.6 % (42.8-82.8) H D 09/02/19 07:05 Lymphocytes % 9.9 % (8-40) D 09/02/19 07:05 Monocytes % 5.8 % (3.8-10.2) 09/02/19 07:05 Eosinophils % 0.5 % (0-4.5) D 09/02/19 07:05 Basophils % 0.2 % (0-2.0) 09/02/19 07:05 Nucleated RBC % 0 % (0-0) 09/02/19 07:05 Assessment/Plan 39 yo POD # 1 s/p primary CD, afebrile, vital signs stable, doing well 1. Continue routine postoperative care. 2. AM CBC without anemia 3. Rh positive status, no rhogam indicated. 4. Encourage ambulation and incentive spirometer use 5. Continue oral pain medication 6. Anticipate discharge home postoperative day #3 or #4
[2019-09-02] MEDS ORDERED: diphenhydrAMINE HCL 25 MG CAPSULE (FP) PO PRN (13:24)
--- NOTE | 2019-09-02 14:45 | PN ---
Progress Note, Physician Chief Complaint: s/p c section post op day one History of Present Illness: under spinal anesthesia with duramorph for post op pain control - Current Medication List Current Medications: Active Medications Acetaminophen (Tylenol -) 650 mg PO Q4H PRN PRN Reason: FEVER Benzocaine (Americaine 20% [place] -) 1 spray TP PRN PRN PRN Reason: Pain - Topical Benzocaine (Americaine Ointment -) 1 applic TP PRN PRN PRN Reason: Pain - Topical Bisacodyl (Dulcolax Suppository -) 10 mg RC PRN PRN PRN Reason: CONSTIPATION Diphenhydramine HCl (Benadryl Injection -) 25 mg IVPUSH Q4H PRN PRN Reason: Pruritis Diphenhydramine HCl (Benadryl -) 25 mg PO Q12H PRN PRN Reason: X Oxytocin/Sodium Chloride (Normal Saline+20 Units Oxytocin -) 20 unit in 1,000 mls @ 125 mls/hr IV ASDIR RODO Last Admin: 09/01/19 22:30 Dose: 125 mls/hr Ibuprofen (Motrin -) 600 mg PO Q4H PRN PRN Reason: PAIN LEVEL 1 - 3 Ibuprofen (Caldolor Injection -) 800 mg IVPB Q8H PRN PRN Reason: PAIN LEVEL 1-5 Last Admin: 09/02/19 08:45 Dose: 800 mg Methylergonovine Maleate (Methergine Injection -) 0.2 mg IM Q4H PRN PRN Reason: Excessive Bleeding (L&D) Naloxone HCl (Narcan -) 0.4 mg IVPUSH PRN PRN PRN Reason: Sedation Ondansetron HCl (Zofran Injection) 4 mg IVPUSH Q4H PRN PRN Reason: NAUSEA Oxycodone HCl (Roxicodone -) 5 mg PO Q4H PRN PRN Reason: PAIN LEVEL 4 - 6 Oxycodone HCl (Roxicodone -) 10 mg PO Q4H PRN PRN Reason: PAIN LEVEL 7 - 10 Senna/Docusate Sodium (Pericolace -) 2 tablet PO HS PRN PRN Reason: CONSTIPATION Simethicone (Mylicon -) 80 mg PO Q4H PRN PRN Reason: GAS Witch Liliane/Glycerin (Tucks Pads -) 1 pad TP PRN PRN PRN Reason: Pain - Topical - Objective Vital Signs: Vital Signs Temperature 97.6 F 09/02/19 06:00 Pulse Rate 95 H 09/02/19 09:00 Respiratory Rate 18 09/02/19 14:00 Blood Pressure 120/61 09/02/19 09:00 O2 Sat by Pulse Oximetry (%) 96 09/01/19 23:30 Constitutional: Yes: Well Nourished Cardiovascular: Yes: WNL Respiratory: Yes: WNL Gastrointestinal: Yes: WNL Labs: CBC, BMP 09/02/19 07:05 08/31/19 21:35 INR, PTT INR 0.87 (0.83-1.09) 08/31/19 21:35 Assessment/Plan complaining of itching, relieved by benadryl, pain controlled, dept of anesthesiology will sign off care at this time
[2019-09-02] MEDS: SIMETHICONE 80 MG TAB.CHEW (FP) PO PRN (20:58)
[2019-09-02] MEDS: ACETAMINOPHEN 325 MG TABLET (FP) PO PRN (20:58)
[2019-09-02] MEDS: IBUPROFEN 600 MG TABLET (FP) PO PRN (20:59)
[2019-09-02] MEDS ORDERED: BISACODYL 10 MG SUPP.RECT RC PRN (22:27)
[2019-09-03] MEDS: IBUPROFEN 600 MG TABLET (FP) PO PRN ×2 (06:10→09:30)
[2019-09-03] MEDS: ACETAMINOPHEN 325 MG TABLET (FP) PO PRN ×2 (06:10→17:54)
--- NOTE | 2019-09-03 07:47 | PN ---
Progress Note (short form) - Note Progress Note: pod 2 s/p c/s, doingwell, ambulating, voids ok, passing gas CBC, BMP 09/02/19 07:05 08/31/19 21:35 Last Vital Signs Temp Pulse Resp BP Pulse Ox 99.0 F 88 18 122/79 96 09/02/19 21:54 09/02/19 21:54 09/02/19 21:54 09/02/19 21:54 09/01/19 23:30 abdomen soft, no distension, no cva incision dry, clean no calf tenderness no excess vaginal bleeding plan ambulate,cbc in am pain management
[2019-09-03] MEDS: SIMETHICONE 80 MG TAB.CHEW (FP) PO PRN ×2 (09:29→17:53)
[2019-09-03] MEDS: oxyCODONE HCL 5 MG TABLET PO PRN ×2 (09:30→17:53)
--- NOTE | 2019-09-03 19:12 | PATH ---
Surgical Pathology Report Patient Name: JAMES OCONNOR Med. Rec. #: [id number] /Age/Gender: 1980 (Age: 39) / F Account: [id number] Location: [facility] Taken: 09/01/2019 Received: 09/02/2019 Reported: 09/03/2019 Physicians: Jose G Funes M.D. Specimen(s) Received PLACENTA Clinical History Right ovary removed ectopic Primary CS failure to progress Final Diagnosis PLACENTA, SECTION: 647 G THIRD TRIMESTER PLACENTA WITH TRIVASCULAR UMBILICAL CORD AND MILD PATCHY ACUTE CHORIOAMNIONITIS. Electronically Signed Cristy Adams M.D. Gross Description The specimen is received fresh labeled placenta and is a 647 gram, 20 x 19 x 1.5 cm. placenta with attached membranes and umbilical cord. The attached membranes are moon-yellow, opaque, and insert marginally. The umbilical cord measures 22 cm. in length and averages 1.5 cm. in diameter. The cord inserts eccentrically, 5 cm. to the nearest margin. No true knots or strictures are identified. Cut surface of the umbilical cord reveals 3 vessels. The surface is aldridge-blue with minimal fibrin deposition and appropriate caliber vessels. The maternal surface is red-brown with focal defects. Sectioning reveals red-brown, spongy parenchyma. No lesions are identified. Enamel Buffer sections are submitted in three cassettes as follows: 1- membrane rolls and umbilical cord; 2-3- full thickness sections of placenta. MLSZ/09/02/2019 sanml/09/02/2019
[2019-09-04] MEDS: ACETAMINOPHEN 325 MG TABLET (FP) PO PRN ×2 (00:11→11:34)
[2019-09-04] MEDS: oxyCODONE HCL 5 MG TABLET PO PRN ×2 (00:11→11:35)
[2019-09-04] MEDS: SIMETHICONE 80 MG TAB.CHEW (FP) PO PRN ×2 (00:12→11:34)
[2019-09-04 02:16] VITALS: PULSE 95
--- NOTE | 2019-09-04 08:42 | DS ---
Physical Exam-PAID SEARCH ANALYST Vital Signs: Vital Signs Temperature 98.0 F 09/03/19 22:00 Pulse Rate 95 H 09/03/19 22:00 Respiratory Rate 20 09/03/19 22:00 Blood Pressure 119/70 09/03/19 22:00 O2 Sat by Pulse Oximetry (%) 96 09/01/19 23:30 Constitutional: Yes: Well Nourished, No Distress, Calm Eyes: Yes: WNL, Conjunctiva Clear, EOM Intact HENT: Yes: WNL, Atraumatic, Normocephalic Neck: Yes: WNL, Supple, Trachea Midline Cardiovascular: Yes: WNL, Regular Rate and Rhythm Respiratory: Yes: WNL, Regular, CTA Bilaterally Gastrointestinal: Yes: WNL ...Rectal Exam: Yes: WNL Renal/: Yes: WNL ....Post : Yes: Uterus firm, Uterus non-tender, Slight lochia rubra Breast(s): Yes: WNL Musculoskeletal: Yes: WNL Extremities: Yes: WNL Edema: Yes Edema: LLE: Trace, RLE: Trace Integumentary: Yes: WNL Wound/Incision: Yes: Clean/Dry, Well Approximated, Sutures Intact Neurological: Yes: WNL, Alert, Oriented ...Motor Strength: WNL Psychiatric: Yes: WNL, Alert, Oriented Labs: CBC, BMP 09/02/19 07:05 08/31/19 21:35 Delivery - Delivery Section: Primary, Low Flap Transverse Type of Anesthesia: Epidural, Spinal EBL (cc): 500 Delivery, Single - Stages of Labor Date 1st Stage Initiatied: 09/01/19 Time 1st Stage Initiated: 10:45 Date of Delivery: 09/01/19 Time of Delivery: 21:26 Time Placenta Delivered: 21:29 Placenta: Yes: Manual Removal - Condition of Adoption Specialist/Jig Mill Operator Present: Yes Name: Gregg Keller Gender: Male Weight: 8 lb 1 oz Position: OP Total Hours ROM (Hrs/Mins): 9h 6m - 1 Minute Total Score: 9 5 Minutes Total Score: 9 - Feeding Plan Initial Plan: Elected not to breastfeed exclusively throughout hospitalization Discharge Summary Reason For Visit: ADMIT INDUCTION Procedures: Principal: primary LST c/s Hospital Course: no complication Condition: Good - Instructions Diet, Activity, Other Instructions: regular diet, no intercourse , follow up office 1 week, if fever, heavy vaginal bleeding, fever call md Referrals: Arnulfo Au MD [Staff Physician] - Disposition: HOME - Home Medications Comprehensive Discharge Medication List: Ambulatory Orders Pnv No.95/Ferrous Fum/Folic AC [ Vitamin Tablet] 1 each PO DAILY 30 Days #30 tablet 01/01/19 Ibuprofen [Motrin -] 600 mg PO QID #28 tablet 09/04/19
[2019-09-04 09:04] LABS: BASO % 0.3 % (0-2.0); EOS % 2.7 % (0-4.5); HEMATOCRIT 33.6 % (32.4-45.2); HEMOGLOBIN 11.2 GM/dL (10.7-15.3); LYMPH % 12.7 % (8-40); MCH 27.6 pg (25.7-33.7); MCHC 33.2 g/dl (32.0-36.0); MEAN PLT VOLUME 7.5 fl (7.5-11.1); MONO % 4.7 % (3.8-10.2); NEUT % 79.6 % (42.8-82.8); PLATELET COUNT 344 K/MM3 (134-434); RBC 4.05 M/mm3 (3.60-5.2); RDW 17.9 % (11.6-15.6); WHITE BLOOD COUNT 11.9 K/mm3 (4.0-10.0)
[2019-09-04 10:28] VITALS: BP 119/73; TEMP 98.7
[2019-09-04] MEDS: IBUPROFEN 600 MG TABLET (FP) PO PRN (11:36)
== END 2019-09-04 14:10 | disposition home or self-care (01) | DRG 540 ==
LOC: JLDR 19:00 → J3W 09-01 23:54
PROVIDERS: ADMIT Obstetrics & Gynecology; ATTEND Obstetrics & Gynecology
PROC: 3E0P7VZ Introduction of Hormone into Female Reproductive, Via Natural or Artificial Opening (ICD-10-PCS; 2019-08-31)
PROC: 10D00Z1 Extraction of Products of Conception, Low, Open Approach (ICD-10-PCS; principal; 2019-09-01)
DX: O62.1 Secondary uterine inertia (principal); O61.0 Failed medical induction of labor; Z3A.40 40 weeks gestation of pregnancy; O41.1230 Chorioamnionitis, third trimester, not applicable or unspecified; Z37.0 Single live birth
CPT/HCPCS: 36415; 80048; 85025; 85610; 85730; 86593; 86850; 86900; 86901; 88307-TC